=== PATIENT | male | born 2000 | race Caucasian/White ===

== ENCOUNTER 2024-05-16 12:47 | Emergency (ER) | payer OTHER ==
[~2024-05-16] VITALS: Ht 165.1 cm; Wt 63.5 kg
[2024-05-16 13:32] VITALS: BP_SYST 126; PULSE 101; RESP 16; TEMP 98.1; O2SAT 96
[2024-05-16] MEDS ORDERED: IBUP-1969 PO (15:40)
[2024-05-16 16:11] VITALS: BP_SYST 124; PULSE 98; RESP 16; TEMP 98; O2SAT 98
== END 2024-05-16 16:09 | disposition home or self-care (01) ==
LOC: SED 12:47
DX: S09.93XA Unspecified injury of face, initial encounter (principal); X58.XXXA Exposure to other specified factors, initial encounter; W50.0XXA Accidental hit or strike by another person, initial encounter; Y93.89 Activity, other specified; Y92.89 Other specified places as the place of occurrence of the external cause; Y99.8 Other external cause status
CPT/HCPCS: 70486; 99284